=== PATIENT | female | born 1945 | race Caucasian/White ===

== ENCOUNTER 2018-02-07 05:42 | Outpatient (CLI) | payer MEDICARE ==
[~2018-02-07] VITALS: Ht 165.1 cm; Wt 113.4 kg
[2018-02-07] MEDS ORDERED: LEVO100T7 PO (13:11)
[2018-02-07] MEDS ORDERED: TRIA1CAP4 PO (13:11)
[2018-02-07] MEDS ORDERED: METF500T5 PO (13:11)
[2018-02-07] MEDS ORDERED: DIPH25CA79 PO (13:11)
[2018-02-07] MEDS ORDERED: SIMV20TA3 PO (13:11)
[2018-02-07] MEDS ORDERED: IBUP-2055 PO (13:11)
== END 2018-02-07 13:15 ==
LOC: PREOP 05:42
PROVIDERS: ATTEND Specialist
DX: Z01.818 Encounter for other preprocedural examination (principal); H26.499 Other secondary cataract, unspecified eye

== ENCOUNTER 2018-02-15 07:31 | Day surgery (SDC) | payer MEDICARE, OTHER ==
[~2018-02-15] VITALS: Ht 165.1 cm; Wt 113.4 kg
[~2018-02-15 07:31] MED LIST: DIPH25CA79 PO; IBUP-2055 PO; LEVO100T7 PO; METF500T5 PO; SIMV20TA3 PO; TRIA1CAP4 PO
[2018-02-15 07:36] VITALS: BP 136/75
[2018-02-15] MEDS: TETRACAINE 0.5% OPHTH SOLN 4 ML BTL (SINGLE DOSE ONLY) OU PRN ×4 (07:46→08:08)
[2018-02-15] MEDS: PHENYLEPHRINE 10% OPHTH (NEO-SYN) 5 ML BTL OU PRN ×3 (07:53→08:08)
[2018-02-15] MEDS: TROPICAMIDE 1% OPH SOLN (MYDRIACYL) 15 ML BTL OU PRN ×3 (07:54→08:08)
--- NOTE | 2018-02-15 08:38 | Ophthalmologist Pre-Op Note ---
Pre-Operative Progress Note H&P Reviewed The H&P was reviewed, patient examined and no changes noted. Date H&P Reviewed: Feb 15, 2018 Time H&P Reviewed: 08:38 Pre-Op Dx Secondary Cataract, Right Eye SONI MCCANN MD Feb 15, 2018 08:38
--- NOTE | 2018-02-15 08:44 | Ophthalmology Operative Report ---
YAG Capsulotomy PREOPERATIVE DIAGNOSIS: Secondary Cataract Left Eye POSTOPERATIVE DIAGNOSIS: Secondary Cataract Left Eye PROCEDURE: YAG Capsulotomy, left eye SURGEON: Jeffrey Mccann ANESTHESIA: Topical anesthesia COMPLICATIONS: None ESTIMATED BLOOD LOSS: Minimal DESCRIPTION OF PROCEDURE: After proper informed consent was obtained, the patient's, a 72 female left eye received one drop of Tropicamide and one drop of Tetracaine. The patient was then placed at the YAG laser and using a power of [ 4.0] millijoules and [ 25] bursts were used to fashion a central capsulotomy. The patient tolerated the procedure well without complications and the patient's pressure was [ 13] shortly after the laser. JEFFREY MCCANN MD Feb 15, 2018 08:44
[2018-02-15 08:45] VITALS: BP 136/75
== END 2018-02-15 08:45 | disposition home or self-care (01) ==
LOC: SDC 07:31
PROVIDERS: ATTEND Specialist
DX: H26.40 Unspecified secondary cataract (principal); E11.36 Type 2 diabetes mellitus with diabetic cataract; I10 Essential (primary) hypertension; E03.9 Hypothyroidism, unspecified; Z79.84 Long term (current) use of oral hypoglycemic drugs; Z79.899 Other long term (current) drug therapy
CPT/HCPCS: 82962

== ENCOUNTER 2021-05-26 08:57 | Outpatient (RCR) | payer MEDICARE, OTHER ==
[2021-03-11 10:00] LABS: BASOPHILS # (AUTO) 0.1 10^3/uL (0.0-0.1); BASOPHILS % (AUTO) 1 % (0-10); EOSINOPHILS # (AUTO) 0.2 10^3/uL (0.0-0.3); EOSINOPHILS % (AUTO) 3 % (0-10); HEMATOCRIT 42 % (35-52); HEMOGLOBIN 13.6 g/dL (11.5-16.0); LYMPHOCYTES # (AUTO) 1.9 10^3/uL (1.0-4.0); LYMPHOCYTES % (AUTO) 26 % (12-44); MEAN CORPUSCULAR HEMOGLOBIN 32 pg (25-34); MEAN CORPUSCULAR HGB CONC 33 g/dL (32-36); MEAN CORPUSCULAR VOLUME 99 fL (80-99); MONOCYTES # (AUTO) 0.5 10^3/uL (0.0-1.0); MONOCYTES % (AUTO) 7 % (0-12); NEUTROPHILS # (AUTO) 4.4 10^3/uL (1.8-7.8); NEUTROPHILS % (AUTO) 62 % (42-75); PLATELET COUNT 383 10^3/uL (130-400); WHITE BLOOD COUNT 7.1 10^3/uL (4.3-11.0)
[2021-03-11 10:24] LABS: ALBUMIN 4.2 GM/DL (3.2-4.5); BILIRUBIN,TOTAL 0.4 MG/DL (0.1-1.0); CALCIUM 10.3 MG/DL (8.5-10.1); CREATININE SERUM 1.18 MG/DL (0.60-1.30); POTASSIUM 3.8 MMOL/L (3.6-5.0)
[2021-04-18 13:06] LABS: BASOPHILS # (AUTO) 0.1 10^3/uL (0.0-0.1); BASOPHILS % (AUTO) 1 % (0-10); EOSINOPHILS # (AUTO) 0.2 10^3/uL (0.0-0.3); EOSINOPHILS % (AUTO) 2 % (0-10); HEMATOCRIT 41 % (35-52); HEMOGLOBIN 13.3 g/dL (11.5-16.0); LYMPHOCYTES # (AUTO) 2.1 10^3/uL (1.0-4.0); LYMPHOCYTES % (AUTO) 24 % (12-44); MEAN CORPUSCULAR HEMOGLOBIN 32 pg (25-34); MEAN CORPUSCULAR HGB CONC 32 g/dL (32-36); MEAN CORPUSCULAR VOLUME 101 fL (80-99); MONOCYTES # (AUTO) 0.5 10^3/uL (0.0-1.0); MONOCYTES % (AUTO) 6 % (0-12); NEUTROPHILS # (AUTO) 5.9 10^3/uL (1.8-7.8); NEUTROPHILS % (AUTO) 67 % (42-75); PLATELET COUNT 330 10^3/uL (130-400); WHITE BLOOD COUNT 8.8 10^3/uL (4.3-11.0)
[2021-04-18 13:25] LABS: ALBUMIN 3.9 GM/DL (3.2-4.5); BILIRUBIN,TOTAL 0.3 MG/DL (0.1-1.0); CALCIUM 10.1 MG/DL (8.5-10.1); CREATININE SERUM 1.07 MG/DL (0.60-1.30); POTASSIUM 3.8 MMOL/L (3.6-5.0); TOTAL PROTEIN 6.9 GM/DL (6.4-8.2)
[~2021-05-26 08:57] MED LIST changes: -IBUP-2055 PO; +IBUP-2473 PO; +METF-397 PO; -METF500T5 PO; +SIMV20TA26 PO; -SIMV20TA3 PO
[2021-05-26 09:08] LABS: BASOPHILS # (AUTO) 0.1 10^3/uL (0.0-0.1); BASOPHILS % (AUTO) 1 % (0-10); EOSINOPHILS # (AUTO) 0.2 10^3/uL (0.0-0.3); EOSINOPHILS % (AUTO) 3 % (0-10); HEMATOCRIT 41 % (35-52); HEMOGLOBIN 13.2 g/dL (11.5-16.0); LYMPHOCYTES # (AUTO) 1.4 10^3/uL (1.0-4.0); LYMPHOCYTES % (AUTO) 19 % (12-44); MEAN CORPUSCULAR HEMOGLOBIN 32 pg (25-34); MEAN CORPUSCULAR HGB CONC 32 g/dL (32-36); MEAN CORPUSCULAR VOLUME 101 fL (80-99); MONOCYTES # (AUTO) 0.5 10^3/uL (0.0-1.0); MONOCYTES % (AUTO) 7 % (0-12); NEUTROPHILS # (AUTO) 5.3 10^3/uL (1.8-7.8); NEUTROPHILS % (AUTO) 70 % (42-75); PLATELET COUNT 309 10^3/uL (130-400); WHITE BLOOD COUNT 7.5 10^3/uL (4.3-11.0)
[2021-05-26 09:41] LABS: ALBUMIN 3.8 GM/DL (3.2-4.5); BILIRUBIN,TOTAL 0.4 MG/DL (0.1-1.0); CALCIUM 9.8 MG/DL (8.5-10.1); CREATININE SERUM 0.94 MG/DL (0.60-1.30); POTASSIUM 3.3 MMOL/L (3.6-5.0); TOTAL PROTEIN 7.3 GM/DL (6.4-8.2)
== END 2021-06-09 | disposition home or self-care (01) ==
LOC: ONC 08:57
PROVIDERS: ATTEND Internal Medicine Hematology & Oncology
DX: D05.11 Intraductal carcinoma in situ of right breast (principal); E66.9 Obesity, unspecified; E03.9 Hypothyroidism, unspecified; E11.9 Type 2 diabetes mellitus without complications; I10 Essential (primary) hypertension; E78.5 Hyperlipidemia, unspecified; Z90.11 Acquired absence of right breast and nipple
CPT/HCPCS: 80053; 85025; G0463; 77290; 77295; 77300; 77307; 77334; 77336; 77417; 99204; 99213; 99214

== ENCOUNTER 2021-06-30 08:34 | Outpatient (RCR) | payer MEDICARE, OTHER ==
[2021-06-24 09:22] LABS: BASOPHILS # (AUTO) 0.1 10^3/uL (0.0-0.1); BASOPHILS % (AUTO) 1 % (0-10); EOSINOPHILS # (AUTO) 0.2 10^3/uL (0.0-0.3); EOSINOPHILS % (AUTO) 3 % (0-10); HEMATOCRIT 42 % (35-52); HEMOGLOBIN 13.5 g/dL (11.5-16.0); LYMPHOCYTES # (AUTO) 1.8 10^3/uL (1.0-4.0); LYMPHOCYTES % (AUTO) 26 % (12-44); MEAN CORPUSCULAR HEMOGLOBIN 33 pg (25-34); MEAN CORPUSCULAR HGB CONC 32 g/dL (32-36); MEAN CORPUSCULAR VOLUME 102 fL (80-99); MEAN PLATELET VOLUME 10.5 fL (9.0-12.2); MONOCYTES # (AUTO) 0.6 10^3/uL (0.0-1.0); MONOCYTES % (AUTO) 8 % (0-12); NEUTROPHILS # (AUTO) 4.3 10^3/uL (1.8-7.8); NEUTROPHILS % (AUTO) 61 % (42-75); PLATELET COUNT 282 10^3/uL (130-400)
[2021-06-24 09:40] LABS: ALBUMIN 3.8 GM/DL (3.2-4.5); BILIRUBIN,TOTAL 0.4 MG/DL (0.1-1.0); CALCIUM 9.9 MG/DL (8.5-10.1); CREATININE SERUM 1.34 MG/DL (0.60-1.30); POTASSIUM 4.1 MMOL/L (3.6-5.0)
== END 2021-09-22 | disposition home or self-care (01) ==
LOC: ONC 08:34
PROVIDERS: ATTEND Internal Medicine Hematology & Oncology
DX: D05.11 Intraductal carcinoma in situ of right breast (principal); E66.9 Obesity, unspecified; E03.9 Hypothyroidism, unspecified; E11.9 Type 2 diabetes mellitus without complications; I10 Essential (primary) hypertension; E78.5 Hyperlipidemia, unspecified; Z90.11 Acquired absence of right breast and nipple; Z92.3 Personal history of irradiation
CPT/HCPCS: 80053; 85025; G0463; 99213

== ENCOUNTER 2021-12-22 08:39 | Outpatient (RCR) | payer MEDICARE, OTHER ==
[2021-12-22 08:57] LABS: BASOPHILS # (AUTO) 0.1 10^3/uL (0.0-0.1); BASOPHILS % (AUTO) 1 % (0-10); EOSINOPHILS # (AUTO) 0.2 10^3/uL (0.0-0.3); EOSINOPHILS % (AUTO) 3 % (0-10); HEMATOCRIT 39 % (35-52); HEMOGLOBIN 12.7 g/dL (11.5-16.0); LYMPHOCYTES # (AUTO) 1.7 10^3/uL (1.0-4.0); LYMPHOCYTES % (AUTO) 23 % (12-44); MEAN CORPUSCULAR HEMOGLOBIN 33 pg (25-34); MEAN CORPUSCULAR HGB CONC 33 g/dL (32-36); MEAN CORPUSCULAR VOLUME 101 fL (80-99); MEAN PLATELET VOLUME 10.5 fL (9.0-12.2); MONOCYTES # (AUTO) 0.7 10^3/uL (0.0-1.0); MONOCYTES % (AUTO) 10 % (0-12); NEUTROPHILS # (AUTO) 4.7 10^3/uL (1.8-7.8); NEUTROPHILS % (AUTO) 63 % (42-75); PLATELET COUNT 295 10^3/uL (130-400); WHITE BLOOD COUNT 7.4 10^3/uL (4.3-11.0)
[2021-12-22 09:13] LABS: ALBUMIN 3.8 GM/DL (3.2-4.5); BILIRUBIN,TOTAL 0.4 MG/DL (0.1-1.0); CALCIUM 9.3 MG/DL (8.5-10.1); CREATININE SERUM 1.04 MG/DL (0.60-1.30); POTASSIUM 3.6 MMOL/L (3.6-5.0)
== END 2022-01-19 | disposition home or self-care (01) ==
LOC: ONC 08:39
PROVIDERS: ATTEND Internal Medicine Hematology & Oncology
DX: Z45.2 Encounter for adjustment and management of vascular access device (principal); D05.11 Intraductal carcinoma in situ of right breast; E66.9 Obesity, unspecified; E03.9 Hypothyroidism, unspecified; E11.9 Type 2 diabetes mellitus without complications; I10 Essential (primary) hypertension; E78.5 Hyperlipidemia, unspecified; Z90.11 Acquired absence of right breast and nipple; Z92.3 Personal history of irradiation
CPT/HCPCS: 80053; 85025; G0463; 36415; 99213

== ENCOUNTER → 2022-06-22 | Outpatient (CLI) | payer MEDICARE, OTHER ==
[~2022-06-22] MED LIST changes: -TRIA1CAP4 PO; +TRIA1CAP84 PO
[2022-06-22 09:06] LABS: BASOPHILS # (AUTO) 0.1 10^3/uL (0.0-0.1); BASOPHILS % (AUTO) 1 % (0-10); EOSINOPHILS # (AUTO) 0.2 10^3/uL (0.0-0.3); EOSINOPHILS % (AUTO) 2 % (0-10); HEMATOCRIT 39 % (35-52); HEMOGLOBIN 12.9 g/dL (11.5-16.0); LYMPHOCYTES # (AUTO) 1.9 10^3/uL (1.0-4.0); LYMPHOCYTES % (AUTO) 25 % (12-44); MEAN CORPUSCULAR HEMOGLOBIN 33 pg (25-34); MEAN CORPUSCULAR HGB CONC 33 g/dL (32-36); MEAN CORPUSCULAR VOLUME 99 fL (80-99); MONOCYTES # (AUTO) 0.7 10^3/uL (0.0-1.0); MONOCYTES % (AUTO) 9 % (0-12); NEUTROPHILS # (AUTO) 4.9 10^3/uL (1.8-7.8); NEUTROPHILS % (AUTO) 63 % (42-75); PLATELET COUNT 299 10^3/uL (130-400); WHITE BLOOD COUNT 7.7 10^3/uL (4.3-11.0)
[2022-06-22 09:29] LABS: ALBUMIN 3.6 GM/DL (3.2-4.5); BILIRUBIN,TOTAL 0.3 MG/DL (0.1-1.0); CALCIUM 9.4 MG/DL (8.5-10.1); CREATININE SERUM 0.99 MG/DL (0.60-1.30); POTASSIUM 3.9 MMOL/L (3.6-5.0); TOTAL PROTEIN 6.8 GM/DL (6.4-8.2)
== END ==
LOC: EDSTATUS 07:41 → ONC 07:43
PROVIDERS: ATTEND Internal Medicine Hematology & Oncology
DX: D05.11 Intraductal carcinoma in situ of right breast (principal); E66.9 Obesity, unspecified; I10 Essential (primary) hypertension; E78.5 Hyperlipidemia, unspecified; E11.9 Type 2 diabetes mellitus without complications
CPT/HCPCS: 80053; 85025; G0463; 36415; 99213

== ENCOUNTER 2022-09-19 05:39 | Outpatient (CLI) | payer MEDICARE, OTHER ==
[~2022-09-19] VITALS: Ht 165.1 cm; Wt 111.4 kg
[2022-09-19] MEDS ORDERED: TAMO20TA2 PO (09:09)
== END 2022-09-19 09:33 | disposition home or self-care (01) ==
LOC: PREOP 05:39
PROVIDERS: ATTEND Specialist
DX: Z01.818 Encounter for other preprocedural examination (principal)

== ENCOUNTER 2022-09-22 07:45 | Day surgery (SDC) | payer MEDICARE, OTHER ==
[~2022-09-22] VITALS: Ht 165 cm; Wt 111.4 kg
[~2022-09-22 07:45] MED LIST changes: +TAMO20TA2 PO
[2022-09-22] MEDS ORDERED: TROPICAMIDE 1% OPH SOLN (MYDRIACYL) 15 ML BTL OU PRN (08:00)
[2022-09-22] MEDS ORDERED: TETRACAINE 0.5% OPHTH SOLN 4 ML BTL (SINGLE DOSE ONLY) OU PRN (08:00)
[2022-09-22] MEDS ORDERED: PHENYLEPHRINE 10% OPHTH (NEO-SYN) 5 ML BTL OU PRN (08:00)
[2022-09-22 08:07] VITALS: BP 138/79
--- NOTE | 2022-09-22 08:52 | Ophthalmologist Pre-Op Note ---
Pre-Operative Progress Note H&P Reviewed The H&P was reviewed, patient examined and no changes noted. Date H&P Reviewed: Sep 22, 2022 Time H&P Reviewed: 08:32 Pre-Op Dx Secondary Cataract, Right Eye SONI MCCANN MD Sep 22, 2022 08:52
--- NOTE | 2022-09-22 08:53 | Ophthalmology Operative Report ---
YAG Capsulotomy PREOPERATIVE DIAGNOSIS: Secondary Cataract Right Eye POSTOPERATIVE DIAGNOSIS: Secondary Cataract Right Eye PROCEDURE: YAG Capsulotomy, right eye SURGEON: Jeffrey Mccann ANESTHESIA: Topical anesthesia COMPLICATIONS: None ESTIMATED BLOOD LOSS: Minimal DESCRIPTION OF PROCEDURE: After proper informed consent was obtained, the patient's, a 77 female, right eye received one drop of Tropicamide and one drop of Tetracaine. The patient was then placed at the YAG laser and using a power of [3.5 ] millijoules and [17 ] bursts were used to fashion a central capsulotomy. The patient tolerated the procedure well without complications. JEFFREY MCCANN MD Sep 22, 2022 08:53
== END 2022-09-22 08:41 ==
LOC: SDC 07:45 → EDSTATUS 08:30 → SDC 08:41
PROVIDERS: ATTEND Specialist
DX: H26.491 Other secondary cataract, right eye (principal); Z87.891 Personal history of nicotine dependence

== ENCOUNTER → 2022-12-21 | Outpatient (CLI) | payer MEDICARE, OTHER ==
[2022-12-21 08:49] LABS: BASOPHILS # (AUTO) 0.1 10^3/uL (0.0-0.1); BASOPHILS % (AUTO) 1 % (0-10); EOSINOPHILS # (AUTO) 0.2 10^3/uL (0.0-0.3); EOSINOPHILS % (AUTO) 3 % (0-10); HEMATOCRIT 39 % (35-52); HEMOGLOBIN 12.9 g/dL (11.5-16.0); LYMPHOCYTES # (AUTO) 1.8 10^3/uL (1.0-4.0); LYMPHOCYTES % (AUTO) 24 % (12-44); MEAN CORPUSCULAR HEMOGLOBIN 33 pg (25-34); MEAN CORPUSCULAR HGB CONC 33 g/dL (32-36); MEAN CORPUSCULAR VOLUME 98 fL (80-99); MEAN PLATELET VOLUME 10.5 fL (9.0-12.2); MONOCYTES # (AUTO) 0.5 10^3/uL (0.0-1.0); MONOCYTES % (AUTO) 7 % (0-12); NEUTROPHILS # (AUTO) 4.7 10^3/uL (1.8-7.8); NEUTROPHILS % (AUTO) 65 % (42-75); PLATELET COUNT 269 10^3/uL (130-400); WHITE BLOOD COUNT 7.3 10^3/uL (4.3-11.0)
[2022-12-21 09:31] LABS: ALBUMIN 3.6 GM/DL (3.2-4.5); BILIRUBIN,TOTAL 0.4 MG/DL (0.1-1.0); CALCIUM 9.7 MG/DL (8.5-10.1); CREATININE SERUM 1.1 MG/DL (0.60-1.30); POTASSIUM 3.9 MMOL/L (3.6-5.0); TOTAL PROTEIN 6.8 GM/DL (6.4-8.2)
== END ==
LOC: ONC 08:20
PROVIDERS: ATTEND Internal Medicine Hematology & Oncology
DX: Z51.0 Encounter for antineoplastic radiation therapy (principal); C50.911 Malignant neoplasm of unspecified site of right female breast; E66.9 Obesity, unspecified; E11.9 Type 2 diabetes mellitus without complications; I10 Essential (primary) hypertension; E78.5 Hyperlipidemia, unspecified
CPT/HCPCS: 36415; 80053; 85025

== ENCOUNTER → 2023-07-26 | Outpatient (CLI) | payer MEDICARE, OTHER ==
[2023-07-26 09:16] LABS: BASOPHILS # (AUTO) 0.1 10^3/uL (0.0-0.1); BASOPHILS % (AUTO) 1 % (0-10); EOSINOPHILS # (AUTO) 0.2 10^3/uL (0.0-0.3); EOSINOPHILS % (AUTO) 2 % (0-10); HEMATOCRIT 40 % (35-52); HEMOGLOBIN 13.3 g/dL (11.5-16.0); LYMPHOCYTES # (AUTO) 1.9 10^3/uL (1.0-4.0); LYMPHOCYTES % (AUTO) 24 % (12-44); MEAN CORPUSCULAR HEMOGLOBIN 33 pg (25-34); MEAN CORPUSCULAR HGB CONC 33 g/dL (32-36); MEAN CORPUSCULAR VOLUME 99 fL (80-99); MEAN PLATELET VOLUME 10.4 fL (9.0-12.2); MONOCYTES # (AUTO) 0.5 10^3/uL (0.0-1.0); MONOCYTES % (AUTO) 7 % (0-12); NEUTROPHILS # (AUTO) 5.1 10^3/uL (1.8-7.8); NEUTROPHILS % (AUTO) 65 % (42-75); PLATELET COUNT 289 10^3/uL (130-400); WHITE BLOOD COUNT 7.8 10^3/uL (4.3-11.0)
[2023-07-26 09:32] LABS: ALBUMIN 3.6 GM/DL (3.2-4.5); BILIRUBIN,TOTAL 0.3 MG/DL (0.1-1.0); CALCIUM 9.4 MG/DL (8.5-10.1); CREATININE SERUM 0.9 MG/DL (0.60-1.30); POTASSIUM 3.8 MMOL/L (3.6-5.0); TOTAL PROTEIN 6.7 GM/DL (6.4-8.2)
== END ==
LOC: ONC 08:33
PROVIDERS: ATTEND Internal Medicine Hematology & Oncology
DX: D05.11 Intraductal carcinoma in situ of right breast (principal); E66.9 Obesity, unspecified; E11.9 Type 2 diabetes mellitus without complications; I10 Essential (primary) hypertension; E78.5 Hyperlipidemia, unspecified
CPT/HCPCS: 80053; 85025; G0463; 36415; 99214